=== PATIENT | female | born 1975 | race African-American/Black ===

== ENCOUNTER 2016-06-23 04:21 | Emergency (ER) | payer OTHER ==
[~2016-06-23] VITALS: Ht 165.1 cm; Wt 79.4 kg
[~2016-06-23 04:21] MED LIST: AMOXICILLIN500 MG PO; BACTRIM DS 8001 TAB PO; FLUOXETINE HCL40 M1 PO; GEODON80 MG PO; MOBIC 15MG15 MG PO; PERCOCET 325 MG1 TA2 PO; TRAZODONE HCL100 M1 PO
[2016-06-23 04:28] VITALS: BP 118/60
--- NOTE | 2016-06-23 04:30 | ED GI/GU/ABDOMINAL COMPLAINT ---
History of Present Illness General Chief Complaint: Abdominal Pain/Flank Pain Stated Complaint: ABD PAIN....MULTIPLE COMP Source: patient, EMS Exam Limitations: no limitations Vital Signs & Intake/Output Vital Signs & Intake/Output ED Intake and Output 06/24 0000 06/23 1200 Intake Total Output Total Balance Patient 175 lb Weight Allergies Coded Allergies: NO KNOWN ALLERGIES (05/21/15) Reconcile Medications Fluoxetine HCl 40 MG CAPSULE 1 CAP PO DAILY MENTAL HEALTH (Reported) Metronidazole (Flagyl) 500 MG TABLET 1 TAB PO BID UROLOGIC Trazodone HCl 100 MG TABLET 1 TAB PO QPM SLEEP (Reported) Ziprasidone HCl (Geodon) 80 MG CAPSULE 1 CAP PO BID MENTAL HEALTH (Reported) Triage Nurses Notes Reviewed? yes ? N Is pt currently ? No Onset: Abrupt Duration: day(s): (5) Timing: recent history Quality/Severity: moderate Location: left lower quadrant, right lower quadrant, suprapubic Activities at Onset: none Sexually Active: Yes Last Time You Were Sexual: less than 2 months ago Use of Protection: Yes Sometimes HPI: 40 year old female with bilateral lower abdominal pain since Monday. No fever, chills, nausea, vomiting or diarrhea. LMP was 2 weeks ago WNL. Initially she thought her period was returning. SHe took motrin with some relief but no relief in the following days. Admits to white vaginal discharge which is also new for her. Reported sexual partner had some penile discharge but she states that she used condoms. Past History Medical History Any Pertinent Medical History? see below for history Neurological: NONE EENT: NONE Cardiovascular: NONE Respiratory: NONE Gastrointestinal: NONE Hepatic: NONE Renal: NONE Musculoskeletal: NONE Psychiatric: schizophrenia Endocrine: NONE Blood Disorders: NONE Cancer(s): NONE Surgical History Surgical History: none Psychosocial History Who do you live with Friend What is your primary language Citizen [place] Family History Hx Contributory? No Review of Systems Review of Systems Constitutional: Denies: chills, fever. EENTM: Reports: no symptoms. Respiratory: Denies: cough, short of breath. Cardiovascular: Denies: chest pain. GI: Reports: abdominal pain. Denies: diarrhea, nausea, vomiting. Genitourinary: Reports: discharge. Denies: dysuria, frequency, hematuria. Musculoskeletal: Denies: back pain. Skin: Reports: no symptoms. Neurological/Psychological: Reports: no symptoms. Hematologic/Endocrine: Denies: bruising, bleeding, polyuria, polydipsia. Immunologic/Allergic: Denies: splenectomy. All Other Systems: Reviewed and Negative Physical Exam Physical Exam General Appearance: well developed/nourished Head: atraumatic, normal appearance Eyes: Bilateral: normal appearance, PERRL, EOMI. Ears, Nose, Throat, Mouth: hearing grossly normal, moist mucous membrane Neck: normal inspection, supple, full range of motion Respiratory: normal breath sounds, chest non-tender, no respiratory distress Cardiovascular: regular rate/rhythm Peripheral Pulses: 2+ radial (R), 2+ radial (L) Gastrointestinal: normal bowel sounds, soft, tenderness (suprapubic/llq/rlq) Pelvic: normal external exam, discharge, tender w/ cervical motion, THICK WHITE DISCHARGE, FISHY ODOR Back: normal inspection, normal range of motion Skin: intact, normal color, warm/dry Core Measures ACS in differential dx? No Severe Sepsis Present: No Septic Shock Present: No Progress Differential Diagnosis: appendicitis, diverticulitis, ectopic , inflamm bowel dis, ovarian cyst, ovarian torsion, PID/cervicitis Plan of Care: Orders Procedure Date/time Status CULTURE,URINE 06/24 431 Active TRICHOMONAS 06/24 431 Active POTASSIUM HYDROXIDE (FLORENCIA) 06/24 431 Active GENITAL CULTURE 06/24 431 Active CHLAMYDIA-GC DNA PROBE 06/24 427 Active URINE 06/24 427 Complete URINALYSIS 06/24 427 Complete COMPREHENSIVE METABOLIC PANEL 06/24 427 Complete CBC WITHOUT DIFFERENTIAL 06/24 427 Complete Current Medications Sig/Macrina Start time Last Medication Dose Stop Time Status Admin Azithromycin 1,000 MG ONCE ONE 06/23 529 UNVr (Zithromax) 06/23 530 Ceftriaxone Sodium 250 MG ONCE ONE 06/23 529 UNir (Rocephin) 06/23 530 Fluconazole 150 MG ONCE ONE 06/23 529 UNVr (Diflucan) 06/23 530 Ketorolac 60 MG ONCE ONE 06/23 429 CAN Tromethamine 06/23 430 (Toradol) Laboratory Tests 06/23/16 0445: Urine Color YEL, Urine Clarity CLEAR, Urine pH 6.0, Ur Specific [place] 1.020, Urine Protein NEG, Urine Ketones NEG, Urine Nitrite NEG, Urine Bilirubin NEG, Urine Urobilinogen 0.2, Ur Leukocyte Esterase NEG, Ur Microscopic EXAM NOT REQUIRED, Urine Hemoglobin NEG, Urine Glucose NEG, Urine Test NEGATIVE 06/23/16 0440: Anion Gap 10, Estimated GFR > 60, BUN/Creatinine Ratio 17.5, Glucose 93, Calcium 9.4, Total Bilirubin 0.4, AST 16, ALT 26, Alkaline Phosphatase 77, Total Protein 7.0, Albumin 3.8, Globulin 3.2, Albumin/Globulin Ratio 1.2, CBC w Diff NO MAN DIFF REQ, RBC 4.20, MCV 91.8, MCH 30.7, RDW 14.4, MPV 8.1, Gran % 64.0, Lymphocytes % 27.0, Monocytes % 7.4, Eosinophils % 0.9, Basophils % 0.7, Absolute Granulocytes 5.2, Absolute Lymphocytes 2.2, Absolute Monocytes 0.6, Absolute Eosinophils 0.1, Absolute Basophils 0.1, PUBS MCHC 33.5 Microbiology 06/23 444 URINE ROUT: Urine Culture - RECD 06/24 431 GENITAL: FLORENCIA Preparation - ORD 06/24 431 GENITAL: Trichomonas Preparation - ORD 06/24 431 GENITAL: Genital Culture - ORD 06/24 427 GENITAL: GC DNA Probe - ORD 06/24 427 GENITAL: Chlamydia DNA Probe (TIM) - ORD AFEBRILE, NORMAL WBC. NO EVIDENCE OF PID. ORAL/IM REGIMEN OF ANTIBIOTICS. PO FLAGYL. (GENESIS KIM,ARMAND) Initial ED EKG: none Departure Departure Time of Disposition: 521 Disposition: HOME OR SELF CARE Condition: Stable Clinical Impression Primary Impression: Candidiasis of vagina Secondary Impressions: Cervicitis Referrals: CONY URBINA,BETHANIE SAPP (PCP/Family) Additional Instructions: TAKE THE FLAGYL DIRECTED. FOLLOW UP WITH YOUR OBGYN DOCTOR IN THE OFFICE. RETURN NEEDED. Departure Forms: Customer Survey General Discharge Information Prescriptions: Current Visit Scripts Metronidazole (Flagyl) 1 TAB PO BID #[id number] TAB
[2016-06-23 04:57] LABS: ABSOLUTE BASOPHIL COUNT 0.1 /CUMM (0.0-0.2); ABSOLUTE EOSINOPHIL COUNT 0.1 /CUMM (0.0-0.7); ABSOLUTE GRANULOCYTE CT 5.2 /CUMM (1.4-6.5); ABSOLUTE LYMPH COUNT 2.2 /CUMM (1.2-3.4); ABSOLUTE MONOCYTE COUNT 0.6 /CUMM (0.10-0.60); BASOPHIL % 0.7 % (0.0-2.0); EOSINOPHIL % 0.9 % (0-5); HEMATOCRIT 38.6 % (37-47); MEAN CORPUSCULAR HGB 30.7 PG (27.0-31.0); MEAN CORPUSCULAR HGB CONC 33.5 G/DL (33.0-37.0); MEAN CORPUSCULAR VOLUME 91.8 FL (81.0-99.0); MEAN PLATELET VOLUME 8.1 FL (7.4-10.4); PLATELET COUNT 222 /CUMM (130-400); RBC DISTRIBUTION WIDTH 14.4 % (11.5-14.5); WHITE BLOOD CELL COUNT 8.2 /CUMM (4.8-10.8)
[2016-06-23] MEDS ORDERED: FLAGYL500 MG PO (05:22)
== END 2016-06-23 05:44 ==
LOC: ERH 04:21
PROVIDERS: Emergency Medicine
DX: B37.3 Candidiasis of vulva and vagina (principal); N72 Inflammatory disease of cervix uteri
CPT/HCPCS: 87070; 81003; 81025; 87086; 87491; 87591; 96372; 96374; J0456; J0696; J1885